=== PATIENT | female | born 1980 | race Two or more races ===

== ENCOUNTER → 2019-12-30 | Outpatient (CLI) | payer OTHER | END | disposition home or self-care (01) | LOC: PRENATAL 14:49 | PROVIDERS: ATTEND Obstetrics & Gynecology Maternal & Fetal Medicine | DX: O10.012 Pre-existing essential hypertension complicating pregnancy, second trimester (principal); O09.522 Supervision of elderly multigravida, second trimester; O99.89 Other specified diseases and conditions complicating pregnancy, childbirth and the puerperium; Z36.89 Encounter for other specified antenatal screening ==